=== PATIENT | male | born 1970 | race Caucasian/White ===

== ENCOUNTER 2022-08-23 16:10 | Outpatient (CLI) | payer OTHER, SELFPAY ==
[2022-08-23 11:18] LABS: Albumin* 4.7 g/dL (3.3-5.0); Chloride* 105 mmol/L (96-114)
[2022-08-23 11:19] LABS: Potassium* 4.5 mmol/L (3.6-5.1); Sodium* 140 mmol/L (135-149)
[2022-08-23 11:21] LABS: Alkaline Phosphatase* 77 U/L (40-150); Aspartate Amino Transferase* 27 U/L (12-35); Bilirubin Total* 0.9 mg/dL (0.1-1.5); Blood Urea Nitrogen* 19 mg/dL (7-30); Carbon Dioxide* 25 mmol/L (20-32); Cholesterol* 195 mg/dL (90-199); Creatinine* 0.9 mg/dL (0.5-1.5); Estimated Glomerular Filt Rate 103 ml/min; Total Protein* 7.7 g/dL (6.0-8.3)
[2022-08-23 11:22] LABS: Alanine Aminotransferase* 25 U/L (4-50); Calcium* 9.3 mg/dL (8.4-10.6); Glucose* 110 mg/dL (60-115); HDL Cholesterol* 47 mg/dL (>=40); LDL Cholesterol Calculated 123 mg/dL (<100); Triglycerides* 123 mg/dL (40-149)
[2022-08-23 11:51] LABS: PSA Screen* 1.09 ng/mL (0.10-4.00)
[2022-08-23 14:58] LABS: Free T4 Free Thyroxine* 1.26 ng/dL (0.70-1.85)
== END 2022-08-23 16:11 | disposition home or self-care (01) ==
PROVIDERS: PCP Internal Medicine; Visit Provider Internal Medicine
DX: E03.9 Hypothyroidism, unspecified (principal); Z13.6 Encounter for screening for cardiovascular disorders; Z12.5 Encounter for screening for malignant neoplasm of prostate
CPT/HCPCS: 80053; 80061; 84153; 84439; 84443

== ENCOUNTER 2023-06-20 10:46 | Outpatient (CLI) | payer OTHER, SELFPAY | END 2023-06-20 10:47 | disposition home or self-care (01) | PROVIDERS: PCP Internal Medicine; Visit Provider Internal Medicine | DX: Z00.00 Encounter for general adult medical examination without abnormal findings (principal); E03.9 Hypothyroidism, unspecified; Z11.1 Encounter for screening for respiratory tuberculosis | CPT/HCPCS: 84443; 86480 ==

== ENCOUNTER 2024-12-31 08:40 | Outpatient (CLI) | payer OTHER, SELFPAY | END 2024-12-31 08:41 | disposition home or self-care (01) | PROVIDERS: PCP Internal Medicine; Visit Provider Internal Medicine | DX: I10 Essential (primary) hypertension (principal); E03.9 Hypothyroidism, unspecified; Z12.5 Encounter for screening for malignant neoplasm of prostate; Z13.6 Encounter for screening for cardiovascular disorders | CPT/HCPCS: 80053; 80061; 84443; G0103 ==